=== PATIENT | male | born 1970 | race Caucasian/White ===

== ENCOUNTER 2023-08-10 09:44 | Emergency (ER) | payer OTHER, SELFPAY ==
[2023-08-10] VITALS (8 sets, daily range): BP systolic 148; BP diastolic 67; PULSE 93–111; RESP 16–17; TEMP 36.9; O2SAT 96–98; BMI 46.5
[2023-08-10] MEDS: dexamethasone 10 mg/mL INJ IM (10:10)
[2023-08-10] MEDS: ketorolac 60 mg/2 mL INJ IM (10:14)
[2023-08-10] MEDS: orphenadrine 30 mg/mL Inj 2 mL 60 MG IM (10:25)
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
--- NOTE | 2023-08-10 10:40 | XRR_ITS ---
PROCEDURE INFORMATION: Exam: XR Lumbosacral Spine Exam date and time: 08/10/2023 11:04 AM Age: 53 years old Clinical indication: Lumbago with sciatica; Patient HX: Low back pain with left sciatica; Lt leg heaviness; No known injury TECHNIQUE: Imaging protocol: Radiologic exam of the lumbosacral spine. Views: 2 or 3 views. COMPARISON: No relevant prior studies available. FINDINGS: Bones/joints: Moderate discogenic degenerative changes at L5-S1. Minimal multilevel endplate spurring. No displaced osseous fractures. Normal lumbar lordosis. No spondylolisthesis. Soft tissues: Visualized superficial soft tissues are normal in appearance. XR/XR lumbar spine 2-3V* 10472 IMPRESSION: No acute findings. Multilevel degenerative changes, as above.
[2023-08-10] MEDS: HYDROmorphone 1 mg/mL INJ 1 mL IM (11:18)
[2023-08-10] MEDS: oxyCODONE-APAP 10-325 mg Tablet 1 TAB PO (12:53)
--- NOTE | 2023-08-14 10:02 | PC.SOCIAL ---
Ortho Referral Referral to clinic at this time. Clinic to contact patient with appt date/time.
== END 2023-08-10 15:10 | disposition home or self-care (01) ==
PROVIDERS: Emergency Provider Emergency Medicine
DX: M54.16 Radiculopathy, lumbar region (principal); S39.012A Strain of muscle, fascia and tendon of lower back, initial encounter; X58.XXXA Exposure to other specified factors, initial encounter
CPT/HCPCS: 72100; 96372; 99284; E0114; J1100; J1170; J1885; J2360

== ENCOUNTER → 2023-08-22 08:00 | Outpatient (BNVA) | payer OTHER, SELFPAY | PROVIDERS: Visit Provider Orthopaedic Surgery | DX: M54.16 Radiculopathy, lumbar region (principal); M54.9 Dorsalgia, unspecified | CPT/HCPCS: 72110 ==